=== PATIENT | male | born 1955 | race Caucasian/White ===

== ENCOUNTER → 2023-10-28 | Outpatient (CLI) | payer MEDICARE ==
--- NOTE | 2023-10-28 20:38 | MR ---
EXAMINATION TYPE: MR lumbar spine wo con DATE OF EXAM: 10/28/2023 COMPARISON: HISTORY: Low back pain into left buttocks x6 months CONTRAST: 0 mL intravenous . TECHNIQUE: Multiplanar, multisequence images of the lumbar spine were acquired. FINDINGS: Cord terminates at the T12-L1 level. L5-S1: No significant disc bulge or disc herniation. Disc space narrowing is evident. Mild facet hype rtrophy is present. No spinal canal stenosis. Neural foramen are patent.. L4-L5: No significant disc bulge or disc herniation. No spinal canal stenosis. Neural foramen are p atent.. Mild facet hypertrophy is present. L3-L4: No significant disc bulge or disc herniation. No spinal canal stenosis. Neural foramen are p atent.. L2-L3: No significant disc bulge or disc herniation. No spinal canal stenosis. Neural foramen are p atent.. L1-L2: No significant disc bulge or disc herniation. No spinal canal stenosis. Neural foramen are p atent.. T12-L1: No significant disc bulge or disc herniation. No spinal canal stenosis. Neural foramen are patent.. Within the posterior L1 vertebral body there is a hypointense area on T1 which has some peripheral hy perintensity on inversion recovery and mildly diffusely increased signal on T2-weighted sequences. Th is is nonspecific. This is not the typical appearance for hemangioma. Neoplasm cannot be excluded. Within the posterior lateral left L5 vertebral body there is a hyperintensity on T1 and T2-weighted s equences were likely related to a hemangioma. IMPRESSION: 1. No spinal canal stenosis. 2. Mild degenerative disc changes L5-S1. 3. Bone lesion L1 vertebral level. Consider additional workup with bone scan or postcontrast MRI.
== END | disposition home or self-care (01) ==
LOC: RADMRIMAIN 12:26
PROVIDERS: ATTEND Orthopaedic Surgery
DX: M51.17 Intervertebral disc disorders with radiculopathy, lumbosacral region (principal); M89.8X8 Other specified disorders of bone, other site
CPT/HCPCS: 72148